=== PATIENT | female | born 1950 | race Caucasian/White ===

== ENCOUNTER → 2016-09-22 | Outpatient (CLI) | payer MEDICARE, OTHER | END | disposition home or self-care (01) | LOC: PCVCCLINIC 09:30 | PROVIDERS: ATTEND Internal Medicine Cardiovascular Disease | DX: E78.00 Pure hypercholesterolemia, unspecified (principal); I10 Essential (primary) hypertension; I25.10 Atherosclerotic heart disease of native coronary artery without angina pectoris | CPT/HCPCS: 80061; G0463 ==

== ENCOUNTER → 2017-05-23 | Outpatient (CLI) | payer MEDICARE, OTHER ==
[~2017-05-23] MED LIST: REGADENOSON 0.4 MG/5 ML DISP.SYRIN. IV ONE
--- NOTE | 2017-05-23 18:58 | PCVCIMAG ---
APPROVED REPORT Exam: Nuclear Stress Test Indication: CAD Patient Location: Out-Patient Stress Nurse: Catalina Lozada RN [place] [employer]:Leonie IZA Wong Ht: 5 ft 2 in Wt: 169 lbs BSA: 1.78 m2 HR: 67 bpm BP: 144/68 mmHg BMI: 30.9 Rhythm: NSR Medical History Medical History: Hyperlipidemia, HTN, Diabetic Noninsulin, Age Medications: ASA, Diltiazem, Imdur (held 24 hours) Prilosec, Tramadol, Glipizide Allergies: Flagyl, Cipro Previous Cardiac Procedures: Cath- Medical treatment for small vessel disease Pretest Chest Pain Characteristics: No chest pain NM EXAM: Myocardial Perfusion REST/STRESS Imaging Protocol: Rest Tc-99m/Stress Tc-99m 1 day Resting Data Rest SPECT myocardial perfusion imaging was performed in supine position 45 minutes following the intravenous injection of 15.6 mCi of Tc-99m Sestamibi. Time of rest injection: 0800 Date: 05/23/2017 Administration Route: IV Administration Site: [facility] Pharmacologic Stress Pharmacologic stress test was performed by injecting Regadenoson 0.4 mg IV push followed by the intravenous injection of 43.4 mCi of Tc-99m Sestamibi. Time of stress injection: 09 Date: 05/23/2017 Administration Route: IV Administration Site: [facility] Study Quality Study: Good Study Data Post stress, the left ventricular ejection was 85%.. SSS: 0 SRS: 6 SDS: 0 TID = 0.89. Perfusion No evidence of stress induced ischemia or prior myocardial infarction. Wall Motion Normal left ventricular size and function with no regional wall motion abnormalities. Nuclear Conclusion No evidence of stress induced ischemia or prior myocardial infarction. Normal left ventricular size and function with no regional wall motion abnormalities. Post stress, the left ventricular ejection was 85%.. Interpreted by: Rober David MD Electronically Approved: 05/23/2017 11:16:42 Stress Test Details Stress Test: Pharmacologic stress testing performed using 0.4 mg of regadenoson per 5 mL given IV over 10 seconds. Reason for pharmacologic stress test: physical limitation, recent knee surgery. HR Resting HR: 67 bpmMax Heart Rate (APMHR): 153 bpm Max HR Achieved: 90 bpmTarget HR (85% APMHR): 130 bpm % of APMHR: 58 Recovery HR: 80 bpm BP Resting BP: 144/68 mmHg Max BP: 159/68 mmHg ECG Resting ECG: Sinus Rhythm Stress ECG: Sinus Rhythm, NSSTT changes Recovery ECG: Sinus Rhythm Clinical Reason for Termination: Completed protocol Stress Symptoms: Mild chest pain Exercise duration: 0 min 55 sec Exercise capacity: 1.0 METs Symptoms resolved during recovery with caffeine. Stress ECG Conclusion ECG: Non-ischemic <Conclusion> ECG: Non-ischemic
== END | disposition home or self-care (01) ==
LOC: PCVCIMAG 07:50
PROVIDERS: ATTEND Internal Medicine Cardiovascular Disease
DX: I25.10 Atherosclerotic heart disease of native coronary artery without angina pectoris (principal); E11.9 Type 2 diabetes mellitus without complications; E78.00 Pure hypercholesterolemia, unspecified; R00.2 Palpitations; I10 Essential (primary) hypertension; E66.9 Obesity, unspecified; I73.89 Other specified peripheral vascular diseases; Z79.82 Long term (current) use of aspirin; Z87.442 Personal history of urinary calculi; Z79.899 Other long term (current) drug therapy; Z88.8 Allergy status to other drugs, medicaments and biological substances
CPT/HCPCS: 78452; 93017; A9500; G0463; J2785